=== PATIENT | male | born 1970 | race Hispanic/Latino ===

== ENCOUNTER 2016-03-26 19:28 | Emergency (ER) | payer SELFPAY ==
[2016-03-26] MEDS ORDERED: Oseltamivir 75 MG CAP ONE (20:09)
[2016-03-26] MEDS ORDERED: Acetaminophen 500 MG TAB ONE (20:12)
--- NOTE | 2016-03-26 21:11 | ERRECORD ---
[facility] EMERGENCY RECORD HPI FLU-LIKE SYNDROME (21:31 AGRE) CHIEF COMPLAINT: Patient presents for evaluation of body aches, Patient presents for evaluation of fatigue, Patient presents for evaluation of fever, Patient presents for evaluation of upper respiratory infection. HISTORIAN: History provided by patient, COUGH, FEVER, CONGESTION, QUISPE, BODY ACHES SINCE YESTERDAY. WORST TODAY. FEEING VERY TIRED. FELT SOB WITH COUGH. NO OTHER SYMPTOMS. LOCATION: No localizing symptoms. QUALITY: Pain is dull in nature, described as aching. SEVERITY: Maximum severity of symptoms severe, Currently symptoms are severe. TIME COURSE: Gradual onset of symptoms, Symptoms are worsening. ASSOCIATED WITH: No associated abdominal pain, No associated chest pain, Associated with cough, No associated diarrhea, No associated neck pain, No associated rash, No associated shortness of breath, No associated urinary tract infection signs or symptoms, Denies any other complaints. EXACERBATED BY: Patient's condition exacerbated by nothing. RELIEVED BY: Patient's condition relieved by nothing. ROS (21:33 AGRE) CONSTITUTIONAL: Historian reports chills, reports fatigue, reports fever, reports malaise, denies weakness. EYES: Historian denies eye redness, denies vision changes. ENT: Historian reports rhinorrhea, reports sore throat, denies stridor. CARDIOVASCULAR: Historian denies chest pain, denies diaphoresis. RESPIRATORY: Historian reports cough, reports sputum. clear, Historian denies stridor, denies wheezing. GI: Historian denies abdominal pain, denies nausea, denies vomiting. MUSCULOSKELETAL: Historian denies back pain, denies neck pain. SKIN: Historian denies skin changes, denies skin lesions. NEUROLOGIC: Historian denies confusion, denies dizziness, denies focal weakness, denies headache. HEMO/LYMPHATIC: Normal hematologic/lymphatic system review, Historian denies petechiae. PSYCHIATRIC: Negative psychiatric review of systems, Historian denies anxiety. PAST MEDICAL HISTORY (19:41 KASA) MEDICAL HISTORY: No past medical history, Flu vaccine not up to date, Tetanus immunization up to date, Date of immunization: 2014. MALE SURGICAL HISTORY: Patient has no surgical history. PSYCHIATRIC HISTORY: No previous psychiatric history. SOCIAL HISTORY: Lives at home, Patient drinks socially, &a-1R&a+25V*p+0X*k0113Y*c152B*c15G*c2P*p-0X&a-25V&a+1RName: Akhil Alcantara : M45 MedRec: [id number] AcctNum: [id number] Prepared: SatMar 26, 2016 21:43 by Interface Page 1 of 4 pMD [facility] EMERGENCY RECORD Patient denies drug use, Patient currently uses tobacco, smokes cigarettes. KNOWN ALLERGIES No Known Drug Allergies CURRENT MEDICATIONS (19:39 KASA) None VITAL SIGNS VITAL SIGNS: BP: 154/110, Pulse: 131, Resp: 20, Temp: 102.2 (Oral), Pain: 8, O2 sat: 94 on Room Air, Time: 03/26/2016 19:37. (19:37 KASA) BP: 164/83, Time: 03/26/2016 19:39. (19:39 KASA) BP: 127/76, Pulse: 116, Resp: 20, Temp: 102.8 (Oral), O2 sat: 95 on Room Air, Time: 03/26/2016 20:28. (20:28 KASA) PHYSICAL EXAM (21:34 AGRE) CONSTITUTIONAL: Vital signs reviewed, Patient febrile, temperature of 102.2, Pulse, tachycardic, Blood pressure, hypertensive, Respiratory rate normal, Patient appears non toxic, Patient appears in pain, in mild pain distress, Patient alert and oriented to person, place and time, NURSES NOTES REVIEWED. HEAD: Head exam included findings of head atraumatic, normocephalic. EYES: Eye exam included findings of eyelids normal to inspection, Pupils equally round and reactive to light, Extraocular muscles intact, Conjunctiva normal, Sclera normal, no periorbital ecchymosis, no periorbital edema, no periorbital erythema. ENT: Ear exam normal, tympanic membranes normal, Nose exam included findings of, turbinate mucosa discharge, ERYTHEMA AND SWELLING OF TURBINATES, CLEAR NASAL CORUZA, Pharynx, injected bilaterally, no swelling, symmetrical, Uvula, without edema, midline, Tonsils, enlarged bilaterally, without exudates, Mouth exam normal. NECK: Neck exam normal, Neck exam included findings of normal range of motion, no meningeal signs, no cervical adenopathy, no tenderness. RESPIRATORY CHEST: Respiratory and chest exam normal, Respiratory exam included findings of no respiratory distress, Breath sounds clear, No wheezing, No rales, No rhonchi, Breath sounds not diminished. CARDIOVASCULAR: Cardiovascular exam included findings of, rate tachycardic, rhythm regular, Heart sounds normal, normal S1, normal S2, no murmurs, no rub, no gallop. ABDOMEN MALE: Abdominal exam normal, Abdominal exam included findings of abdomen nontender, Bowel sounds normal, Liver normal, Spleen normal, no distension, no mass. &a-1R&a+25V*p+0X*a9640F*c152B*c15G*c2P*p-0X&a-25V&a+1RName: Akhil Alcantara : M45 MedRec: [id number] AcctNum: [id number] Prepared: SatMar 26, 2016 21:43 by Interface Page 2 of 4 pMD [facility] EMERGENCY RECORD BACK: Back exam normal, Back exam included findings of normal inspection, range of motion normal. UPPER EXTREMITY: Upper extremity exam included findings of inspection normal, Range of motion normal. LOWER EXTREMITY: Lower extremity exam included findings of inspection normal, Range of motion normal. NEURO: Neuro exam normal, Julianna coma scale 15, Neuro exam findings include patient oriented to person, place and time, Speech normal, Gait normal, Memory normal, Cranial nerves intact, no focal motor deficits, no focal sensory deficits, no cerebellar deficits. SKIN: Skin exam normal, Skin exam included findings of skin warm, dry, and normal in color. LYMPHATIC: Lymphatic exam normal, Lymphatic exam included findings of cervical nodes normal. PSYCHIATRIC: Psychiatric exam normal, Normal affect. MEDICATION ADMINISTRATION SUMMARY Drug Name: Tylenol Extra Strength, Dose Ordered: 1 g, Route: Oral, Status: Given, Time: 20:15 03/26/2016, Drug Name: Tamiflu, Dose Ordered: 75 mg, Route: Oral, Status: Given, Time: 20:14 03/26/2016, Detailed record available in Medication Service section. DOCTOR NOTES (21:39 AGRE) RE-EVALUATION: Routine re-evaluation, after administration of antipyretics, The patient's condition has improved. TEXT: HE REMAINED ALERT AND ORIENTED WITH IMPROVED PAIN. SMILING AND TALKATIVE, NO NEURO CHANGES. DISCUSSED WITH PATIENT FINDINGS ON EXAM, RESULTS OF TEST, MANAGEMENT OF HIS FEVER AND PAIN, MEDS FOR INFLUENZA, CONTAGIOUS, FLUIDS, NEED FOR CLOSE FOLLOW UP. HE EXPRESSED UNDERSTANDING AND AGREEMENT. PATIENT STATUS: Patient has improved since arrival to emergency department. PATIENT PLAN: The patient will be discharged. DATA REVIEWED: Lab data reviewed. PROBLEM LIST No recorded problems DIAGNOSIS (20:10 AGRE) FINAL: PRIMARY: influenza. PRESCRIPTION (20:11 AGRE) Tamiflu: CAPSULE (HARD, SOFT, ETC.) : 75 mg : ORAL : Quantity: 1 Unit: tab(s) Route: ORAL Schedule: 2 times a day (before meals) Dispense: 10 May substitute. Refills: No Refills . NOTES: No Refills. DISPOSITION &a-1R&a+25V*p+0X*d3075K*c152B*c15G*c2P*p-0X&a-25V&a+1RName: Akhil Alcantara : M45 MedRec: [id number] AcctNum: [id number] Prepared: SatMar 26, 2016 21:43 by Interface Page 3 of 4 pMD [facility] EMERGENCY RECORD PATIENT: Disposition Type: Discharge, Disposition: *Discharge Home, Condition: Good. (20:10 DELFINO) Patient left the department. (20:46 RUTH) Allan: DELFINO=MD Giancarlo, Hugo MIRANDA=WOODROW Selby, [facility] &a-1R&a+25V*p+0X*e9067G*c152B*c15G*c2P*p-0X&a-25V&a+1RName: Akhil Alcantara : 5 MedRec: [id number] AcctNum: [id number] Prepared: SatMar 26, 2016 21:43 by Interface Page 4 of 4 pMD MTDD
--- NOTE | 2016-03-26 21:17 | PICIS ---
[facility] EMERGENCY RECORD TRIAGE (19:39 KASA) TRIAGE NOTES: states he woke up and felt like he couldn't breathe or see right, cough, congestion, achy, QUISPE. (19:39 KASA) PATIENT: NAME: Akhil Alcantara, AGE: 45, GENDER: male, : Sat1970, TIME OF GREET: SatMar 26, 2016 19:29, PREFERRED LANGUAGE: Andorran, ETHNICITY: or , ECODE BILLING MAP: [facility], SSN: [id number], Zip Code: [address], KG WEIGHT: [phone], PHONE: , , , PERSON ID: [id number], PCP: None. (19:39 KASA) COMPLAINT: FLU LIKE SYMPTOMS,FEVER,SINCE YESTERDAY W/COUGH. (19:39 KASA) ADMISSION: URGENCY: 4 Non Urgent, ADMISSION SOURCE: Home, TRANSPORT: CAR, BED: ER -03. (19:39 KASA) ASSESSMENT: Assessment: Coughing, runny nose, Symptoms began 03/25/2016. (19:41 KASA) PAIN: Patient complains of pain described as, aching, on a scale 0-10 patient rates pain as 8, Location Head, all over, Pain is constant, Onset was 03/26/2016, No aggravating factors, No relieving factors. (19:41 KASA) SIRS SCORING: Heart Rate 110-139 (2), Temp range 102.1-105.6 (3), respiratory rate 12-24 (0), Mental Status altered: no (0), Total SIRS Score 5. (19:41 KASA) TRIAGE SCREENING: Patient denies suicidal ideation, Patient denies presence of domestic violence. (19:41 KASA) TREATMENTS IN PROGRESS: Treatments given Prehospital: Ibuprofen 800 mg about 20 min [employer]. (19:41 KASA) PROVIDERS: TRIAGE NURSE: Stephany Selby RN. (19:39 KASA) VITAL SIGNS: BP 154/110, Pulse 131, Resp 20, Temp 102.2, (Oral), Pain 8, O2 Sat 94, on Room Air, Time 03/26/2016 19:37. (19:37 KASA) BP 164/83, Time 03/26/2016 19:39. (19:39 KASA) PREVIOUS VISIT ALLERGIES: No Known Drug Allergies. (19:39 KASA) No Known Drug Allergies. (19:41 KASA) KNOWN ALLERGIES No Known Drug Allergies CURRENT MEDICATIONS (19:39 KASA) None VITAL SIGNS VITAL SIGNS: BP: 154/110, Pulse: 131, Resp: 20, Temp: 102.2 (Oral), Pain: 8, O2 sat: 94 on Room Air, Time: 03/26/2016 19:37. (19:37 KASA) BP: 164/83, Time: 03/26/2016 19:39. (19:39 KASA) BP: 127/76, Pulse: 116, Resp: 20, Temp: 102.8 (Oral), O2 sat: 95 on Room Air, Time: 03/26/2016 20:28. (20:28 KASA) NURSING ASSESSMENT: RESPIRATORY /CHEST (19:39 KASA) CONSTITUTIONAL: Patient arrives ambulatory, Gait steady, History &a-1R&a+25V*p+0X*w8324I*c152B*c15G*c2P*p-0X&a-25V&a+1RName: Akhil Alcantara : M45 MedRec: [id number] AcctNum: [id number] Prepared: SatMar 26, 2016 20:54 by Interface Page 1 of 4 pMD [facility] EMERGENCY RECORD obtained from patient, Patient appears, generally ill, Patient cooperative, Patient alert, Oriented to person, place and time, Skin warm, Skin dry, Skin normal in color, Mucous membranes pink, Mucous membranes moist, Patient complains of Flu like symptoms, states he woke up and felt like he couldn't breathe or see right, cough, congestion, achy, QUISPE. RESPIRATORY/CHEST: Breath sounds clear, Respiratory assessment findings include respiratory effort easy, Respirations regular, Conversing normally, Neck and chest exam findings include trachea midline, Chest expansion equal, Chest movement symmetrical, no signs of distress, Associated with cough, non-productive, Associated with fever. ENT: Nasal assessment findings include nose normal to inspection, Congestion, bilaterally, Mucous membranes pink, and moist, Able to swallow. SAFETY: Side rails up, Cart/Stretcher in lowest position, Call light within reach, Hospital ID band on. NURSING PROCEDURE: DISCHARGE NOTE (20:45 KASA) DISCHARGE: Patient discharged to home, ambulating without assistance, driving self, unaccompanied, Summary of Care printed/ provided, Discharge instructions given to patient, Simple or moderate discharge teaching performed, . Educated and provided handout regarding diagnosis of: Flu Follow up with PCP in 1 week, or sooner if no improvement., Prescriptions given and instructions on side effects given, Name of prescription(s) given: Tamiflu, Above person(s) verbalized understanding of discharge instructions and follow-up care. BELONGINGS: Belongings and valuables with patient upon arrival to the Emergency Department include:, Belongings and valuables with patient at time of discharge include:, Belongings remain with patient, Valuables remain with patient. SAFETY: Side rails up, Cart/Stretcher in lowest position, Call light within reach, Hospital ID band on. NURSING PROCEDURE: ENT (19:43 KASA) PATIENT IDENTIFIER: Patient actively involved in identification process, Patient's identity verified by patient stating name, Patient's identity verified by patient stating date. ENT: ENT care indicated for specimen collection, Nasal swab collected, labeled in the presence of the patient and sent to lab for testing of, influenza A, influenza B, collected by WOODROW Hammond. SAFETY: Side rails up, Cart/Stretcher in lowest position, Call light within reach, Hospital ID band on. ORDER DETAILS Order Name: Influenza A&B Ag Screen, Status: Active, Time: 19:41 03/26/2016, User: [facility], - Ordered for: MD Mondragon Andrea, &a-1R&a+25V*p+0X*k7794M*c152B*c15G*c2P*p-0X&a-25V&a+1RName: Akhil Alcantara : M45 MedRec: [id number] AcctNum: [id number] Prepared: SatMar 26, 2016 20:54 by Interface Page 2 of 4 pMD [facility] EMERGENCY RECORD - Entered by: WOODROW Cintron, Anel - SatMar 26, 2016 19:41, - Quantity: 1. MEDICATION ADMINISTRATION SUMMARY Drug Name: Tylenol Extra Strength, Dose Ordered: 1 g, Route: Oral, Status: Given, Time: 20:15 03/26/2016, Drug Name: Tamiflu, Dose Ordered: 75 mg, Route: Oral, Status: Given, Time: 20:14 03/26/2016, Detailed record available in Medication Service section. MEDICATION SERVICE Tamiflu: Order: Tamiflu (oseltamivir phosphate) - Dose: 75 mg : Oral Ordered by: Hugo Mondragon MD Entered by: Hugo Mondragon MD SatMar 26, 2016 20:09 , Acknowledged by: Stephany Selby RN SatMar 26, 2016 20:12 Documented as given by: Stephany Selby RN SatMar 26, 2016 20:14 Patient, Medication, Dose, Route and Time verified prior to administration. Amount given: 75 mg, Site: Medication administered P.O., Correct patient, time, route, dose and medication confirmed prior to administration, Patient advised of actions and side-effects prior to administration, Allergies confirmed and medications reviewed prior to administration, Patient in position of comfort, Side rails up, Cart in lowest position. Tylenol Extra Strength: Order: Tylenol Extra Strength (acetaminophen) - Dose: 1 g : Oral Ordered by: Hugo Mondragon MD Entered by: Hugo Mondragon MD SatMar 26, 2016 20:14 , Acknowledged by: Stephany Selby RN SatMar 26, 2016 20:15 Documented as given by: Stephany Selby RN SatMar 26, 2016 20:15 Patient, Medication, Dose, Route and Time verified prior to administration. Amount given: 1 g, Site: Medication administered P.O., Correct patient, time, route, dose and medication confirmed prior to administration, Patient advised of actions and side-effects prior to administration, Allergies confirmed and medications reviewed prior to administration, Patient in position of comfort, Side rails up, Cart in lowest position. PAST MEDICAL HISTORY (19:41 KASA) MEDICAL HISTORY: No past medical history, Flu vaccine not up to date, Tetanus immunization up to date, Date of immunization: 2014. MALE SURGICAL HISTORY: Patient has no surgical history. PSYCHIATRIC HISTORY: No previous psychiatric history. SOCIAL HISTORY: Lives at home, Patient drinks socially, Patient denies drug use, Patient currently uses tobacco, smokes cigarettes. &a-1R&a+25V*p+0X*k8777I*c152B*c15G*c2P*p-0X&a-25V&a+1RName: Akhil Alcantara : M45 MedRec: [id number] AcctNum: [id number] Prepared: SatMar 26, 2016 20:54 by Interface Page 3 of 4 pMD [facility] EMERGENCY RECORD LAB INTERPRETATION (20:09 AGRE) INTERPRETATION: Influenza, positive for influenza A. EVENTS TRANSFER: Triage to Emergency Emergency Room -03. (SatMar 26, 2016 19:39 KASA) Removed from Emergency Emergency Room -03. (20:46 KASA) PROBLEM LIST No recorded problems DIAGNOSIS (20:10 AGRE) FINAL: PRIMARY: influenza. DISPOSITION PATIENT: Disposition Type: Discharge, Disposition: *Discharge Home, Condition: Good. (20:10 AGRE) Patient left the department. (20:46 KASA) INSTRUCTION (20:13 AGRE) DISCHARGE: INFLUENZA (ADULT). SPECIAL: TAKE TYLENOL 1 GRAM EVERY 4 HOURS AND MOTRIN 600 MG EVERY 6 HOURS TO KEEP THE FEVER UNDER CONTROL. TAKE LOTS OF FLUIDS. FOLLOW UP WITH YOUR PRIMARY CARE PHYSICIAN IN 1 WEEKS. SEE A PHYSICIAN SOONER IF WORSENING OR IF NEW SYMPTOMS DEVELOP. PRESCRIPTION (20:11 AGRE) Tamiflu: CAPSULE (HARD, SOFT, ETC.) : 75 mg : ORAL : Quantity: 1 Unit: tab(s) Route: ORAL Schedule: 2 times a day (before meals) Dispense: 10 May substitute. Refills: No Refills . NOTES: No Refills. IMAGING *DISCHARGE INSTRUCTIONS RECEIPT: Image captured from scanner. (20:52 KASVenessa) *SUPPLY CHARGE SHEET: Image captured from scanner. (20:53 RUTH) Allan: AGRE=MD Giancarlo, Hugo MIRANDA=WOODROW Selby, Stephany &a-1R&a+25V*p+0X*q7274C*c152B*c15G*c2P*p-0X&a-25V&a+1RName: Akhil Alcantara : M45 MedRec: [id number] AcctNum: [id number] Prepared: SatMar 26, 2016 20:54 by Interface Page 4 of 4 pMD MTDD
== END 2016-03-26 20:45 | disposition home or self-care (01) ==
LOC: NAV ERS 19:28
DX: J11.1 Influenza due to unidentified influenza virus with other respiratory manifestations (principal); F17.210 Nicotine dependence, cigarettes, uncomplicated
CPT/HCPCS: 99283

== ENCOUNTER 2019-11-27 10:23 | Outpatient (CLI) | payer BC, SELFPAY ==
[2019-11-27 10:41] LABS: #Basophils 0.1 thou/uL (0.0-0.2); #Eosinphils 0.2 thou/uL (0.0-0.7); #Lymphocytes 1.6 thou/uL (1.20-3.40); #Monocytes 0.3 thou/uL (0.11-0.59); #Neutrophils 3.5 thou/uL (1.40-6.50); %Basophils 1.1 % (0.0-1.0); %Eosinophils 4.3 % (0.0-10.0); %Lymphocytes 28.3 % (21.0-51.0); %Monocytes 4.5 % (0.0-10.0); %Neutrophils 61.9 % (42.0-75.0); Hemoglobin 13.5 g/dL (14.0-18.0); Mean Corpuscular HGB CONC 33.2 g/dL (32.0-36.0); Mean Corpuscular Hemoglobin 30.2 pg (27.0-31.0); Mean Corpuscular Volume 90.9 fL (78.0-98.0); Mean Platelet Volume 8.9 fL (7.4-10.4); Platelet Count 172 thou/uL (130-400); RBC Distribution Width 11.8 % (11.5-14.5); Red Blood Cell (RBC) Count 4.45 mill/uL (4.70-6.10); White Blood Cell (WBC) Count 5.7 thou/uL (4.8-10.8)
[2019-11-27 10:54] LABS: ALT (SGPT) 193 U/L (8-55); AST (SGOT) 132 U/L (5-34); Alkaline Phosphatase 68 U/L (40-110); Anion Gap 13 mmol/L (10-20); BUN (Urea Nitrogen) 16 mg/dL (8.9-20.6); Bilirubin, Total 0.6 mg/dL (0.2-1.2); Calc. Creatinine Clearance 0 mL/min (70-130); Carbon Dioxide 25 mmol/L (22-29); Chloride 105 mmol/L (98-107); Cholesterol 156 mg/dl (< 200 Desired); Estimated GFR-MDRD 75; Globulin 3.6 g/dL (2.4-3.5); Glucose 115 mg/dL (70-105); HDL Cholesterol 39 mg/dL (>60 Neg Risk); LDL Cholesterol, Calculated 83 mg/dL; Potassium 4.4 mmol/L (3.5-5.1); Protein, Total 7.6 g/dL (6.0-8.3); Sodium 139 mmol/L (136-145); Triglycerides 170 mg/dL (Less than 150)
[2019-11-27 11:11] LABS: Bilirubin Negative (Negative); Blood, Urine Moderate (Negative); Clarity Slightly Cloudy (Clear); Glucose, Urine (Dipstick) Negative (Negative); Ketone, Urine Trace mg/dL (Negative); Leukocyte Large (Negative); Nitrite Positive (Negative); Protein, Urine (Dipstick) 30 mg/dL (Neg-Trace); Specific Gravity, Urine 1.025 (1.005-1.030); Urobilinogen 0.2 mg/dL (Less than 2); pH, Urine 5.5 (5.0-9.0)
[2019-11-27 11:19] LABS: Bacteria/HPF 2+ HPF (None Seen); Squamous Epithelial None Seen HPF (0-3)
[2019-11-27 18:06] LABS: Chlam.trachomatis by PCR,Urine Not Detected (NotDetected)
[2019-11-27 19:17] LABS: Hemoglobin A1c 6.2 % (4.0-6.0)
== END 2019-11-27 10:24 | disposition home or self-care (01) ==
LOC: NAV LABSP 10:23
PROVIDERS: ATTEND Family Medicine
DX: Z76.89 Persons encountering health services in other specified circumstances (principal); R30.0 Dysuria; Z91.89 Other specified personal risk factors, not elsewhere classified
CPT/HCPCS: 80053; 80061; 81001; 83036; 85025; 87077; 87086; 87186; 87491; 87591

== ENCOUNTER 2020-07-13 18:50 | Emergency (ER) | payer BC ==
[2020-07-13] MEDS ORDERED: Lidocaine 1% (PF) 30 ML VIAL ONE (19:00)
[2020-07-13] MEDS ORDERED: Boostrix 0.5 ML (Tdap) VIAL ONE (19:00)
[2020-07-13] MEDS ORDERED: Bacitracin 1 PK ONE (19:17)
== END 2020-07-13 20:00 | disposition home or self-care (01) ==
LOC: NAV ERS 18:50
DX: S61.211A Laceration without foreign body of left index finger without damage to nail, initial encounter (principal); E11.9 Type 2 diabetes mellitus without complications; F17.210 Nicotine dependence, cigarettes, uncomplicated; W26.0XXA Contact with knife, initial encounter
CPT/HCPCS: 12001; 90471; 90715; J2001

== ENCOUNTER 2020-07-22 08:28 | Emergency (ER) | payer BC | END 2020-07-22 08:40 | disposition home or self-care (01) | LOC: NAV ERS 08:28 | DX: S61.211D Laceration without foreign body of left index finger without damage to nail, subsequent encounter (principal); E11.9 Type 2 diabetes mellitus without complications; F17.210 Nicotine dependence, cigarettes, uncomplicated; Z79.84 Long term (current) use of oral hypoglycemic drugs; X58.XXXD Exposure to other specified factors, subsequent encounter ==